=== PATIENT | male | born 1945 | race Caucasian/White ===

== ENCOUNTER 2018-08-14 05:50 | Inpatient (IN) | payer MEDICARE, OTHER ==
[2018-08-11 09:46] LABS: BASOPHILS % 0.8 % (0.0-1.0); EOSINOPHILS # (AUTO) 0.1 (0.0-0.4); EOSINOPHILS % 1.8 % (0.0-6.0); HEMATOCRIT 38.9 % (38.2-49.6); HEMOGLOBIN 13.3 g/dL (14.0-18.0); LYMPHOCYTES # (AUTO) 0.8 (1.0-3.2); MEAN CORPUSCULAR HEMOGLOBIN 32.1 pg (28-32); MEAN CORPUSCULAR HGB CONC 34.2 g/dL (31-35); MONOCYTES # (AUTO) 0.4 (0.2-0.8); MONOCYTES % 10.8 % (4.4-11.3); NEUTROPHILS # (AUTO) 2.5 (2.1-6.9); NEUTROPHILS % 64.3 % (38.7-80.0); PLATELET COUNT 180 x10e3/uL (140-360); RED BLOOD COUNT 4.14 x10e6/uL (4.3-5.7); RED CELL DISTRIBUTION WIDTH 12.6 % (11.7-14.4)
--- NOTE | 2018-08-11 10:11 | Diagnostic Imaging Report ---
EXAMINATION: PA and lateral views of the chest. COMPARISON: None CLINICAL HISTORY: Preoperative evaluation DISCUSSION: Lines/tubes: None. Lungs: Left lingular atelectasis, otherwise the lungs are clear.. No pneumonia or pulmonary edema. Pleura: No pleural effusion or pneumothorax. Heart and mediastinum: The cardiomediastinal silhouette is normal. Bones and soft tissues: No acute bony abnormalities. IMPRESSION: No acute cardiopulmonary abnormalities. Signed by: Dr. Richard Noguera M.D. on 08/11/2018 10:07 AM
[~2018-08-14] VITALS: Ht 182.9 cm; Wt 99.9 kg
[~2018-08-14 05:50] MED LIST: METOPROLOL SUCC50 MG PO; TERAZOSIN HCL5 MG PO
--- OUTSIDE RECORDS SUMMARY | 2018-08-14 05:59 | XMS REPORT ---
Author Author [facility] Address Unknown Phone Unavailable Care Team Providers [facility] [employer] Name Role Phone SHAHLA SERRATO Unavailable Unavailable Problems This patient has no known problems. Allergies, Adverse Reactions, Alerts This patient has no known allergies or adverse reactions. Medications This patient has no known medications. Results Test Description Test Time Test Comments Text Results Atomic Results Result Comments CHEST 2 VIEWS 2018-08-11 10:07:00 [place] [id number] [place] [address] Patient Name: LULA TARIQ MR #: [id number] : 1945 Age/Sex: 73/M Req #: [id number] [facility] Physician: Ordered by: SHAHLA SERRATO MD Report #: [id number] Location: OR Room/Bed: Procedure: [id number] DX/CHEST 2 VIEWS Exam Date: 08/11/18 Exam Time: 924 REPORT STATUS: Signed EXAMINATION: PA and lateral views of the chest. COLEEN RISON: None CLINICAL HISTORY: Preoperative evaluation DISCUSSION: Lines/tubes: None. Lungs: Left lingular atelectasis, otherwise the lungs are clear.. No pneumonia or pulmonary edema. Pleura: No pleural effusion or pneumothorax. Heart and mediastinum: The cardiomediastinal silhouette is normal. Bones and soft tissues: No acute bony abnormalities. IMPRESSION: No acute cardiopulmonary abnormalities. Signed by: Dr. Max Lopes M.D. on 08/11/2018 10:07 AM Dictated By: MAX LOPES MD [id number] Transcribed By: KISHAN on 08/11/18 1007 COPY TO: SHAHLA SERRATO MD
[2018-08-14] MEDS ORDERED: CELECOXIB 200 MG CAP ONE (06:27)
[2018-08-14] MEDS ORDERED: DEXAMETHASONE SOD PHOS 10 MG/1 ML VIAL ONE (06:28)
[2018-08-14] MEDS ORDERED: GABAPENTIN 300 MG CAP ONE (06:28)
[2018-08-14] MEDS ORDERED: CEFAZOLIN SOD 2 GM/D5W 50ML 50 ML IV ONE (06:28)
[2018-08-14 06:48] LABS: BASOPHILS % 0.7 % (0.0-1.0); EOSINOPHILS # (AUTO) 0.2 (0.0-0.4); EOSINOPHILS % 3.3 % (0.0-6.0); HEMATOCRIT 38.9 % (38.2-49.6); HEMOGLOBIN 13.4 g/dL (14.0-18.0); LYMPHOCYTES # (AUTO) 1.3 (1.0-3.2); LYMPHOCYTES % 27.9 % (18.0-39.1); MEAN CORPUSCULAR HEMOGLOBIN 32.6 pg (28-32); MEAN CORPUSCULAR HGB CONC 34.4 g/dL (31-35); MEAN CORPUSCULAR VOLUME 94.6 fL (81-99); MONOCYTES # (AUTO) 0.5 (0.2-0.8); NEUTROPHILS # (AUTO) 2.6 (2.1-6.9); NEUTROPHILS % 57.9 % (38.7-80.0); PLATELET COUNT 179 x10e3/uL (140-360); RED BLOOD COUNT 4.11 x10e6/uL (4.3-5.7); RED CELL DISTRIBUTION WIDTH 12.8 % (11.7-14.4)
--- NOTE | 2018-08-14 07:10 | NUR ---
SPIRITUAL CARE - Pre-Surgery Assessment: Pt in bed. Pt reported supportive attention from family and friends. Intervention: I provided pastoral presence, hospitality, and sympathetic listening. I acquainted pt with availability of english teacher while hospitalized. Outcome: Pt expressed appreciation for visit. No need for follow up indicated at this time. [facility] Spiritual Care Department O: [phone] Pager: [phone] ([phone] number calling from)
[2018-08-14] MEDS ORDERED: BACITRACIN 50,000 UNIT VIAL ONE (07:22)
[2018-08-14] MEDS ORDERED: TRANEXAMIC ACID 1,000 MG/10 ML ML ONE (07:22)
[2018-08-14] MEDS ORDERED: BUPIVACAINE 7.5MG/ML /DEXTROSE 82.5MG/ML 2 ML AMP INJ ONE (07:28)
[2018-08-14] MEDS ORDERED: ROPIVACAINE 246.25 MG, EPINEPHRINE HCL 1:1000 1ML 0.5 MG, CLONIDINE HCL 0.08 MG, KETORO... INJ ONE ×5 (07:30)
[2018-08-14] MEDS ORDERED: VANCOMYCIN HCL 500 MG ONE (07:46)
[2018-08-14] MEDS ORDERED: SODIUM CHLORIDE 0.9% 500ML 500 ML ONE (07:46)
[2018-08-14] MEDS ORDERED: HYDROCODONE/APAP 5MG-325MG TAB PO PRN (10:00)
[2018-08-14] MEDS ORDERED: ACETAMINOPHEN 650 MG SUPP PR PRN (10:00)
[2018-08-14] MEDS ORDERED: ONDANSETRON HCL INJ 2MG/ML 2ML 2 MG/ML VIAL IV PRN (10:00)
[2018-08-14] MEDS ORDERED: HYDROCODONE/APAP 7.5MG-325MG 1 EA TAB PO PRN (10:00)
[2018-08-14] MEDS ORDERED: DIPHENHYDRAMINE HCL INJ 50 MG/ML VIAL IM/IV PRN (10:00)
[2018-08-14] MEDS ORDERED: PROMETHAZINE HCL (IM) 25 MG/ML VIAL INJ PRN (10:00)
[2018-08-14] MEDS ORDERED: DOCUSATE SODIUM 100 MG CAP PO PRN (10:00)
[2018-08-14] MEDS ORDERED: ZOLPIDEM TARTRATE 5 MG TAB PO PRN (10:00)
[2018-08-14] MEDS ORDERED: FENTANYL CITRATE/PF 100MCG/2 ML INJ ONE ×2 (10:27→18:36)
[2018-08-14] MEDS ORDERED: HYDROMORPHONE 2MG/ML 2 MG/ML ML ONE (11:57)
[2018-08-14] MEDS: ACETAMINOPHEN 1000 MG/100 ML IV SCH ×2 (12:00→18:02)
--- NOTE | 2018-08-14 12:24 | Diagnostic Imaging Report ---
Exam: Left hip series portable 2 views dated 08/14/2014 at 11:13 AM History: Hip replacement Comparison: None available Findings: There is a total hip replacement in good position. Single screw through the acetabular cup is present into the iliac bone. Surgical skin erica with air within the soft tissues. Impression: Status post total hip replacement. Signed by: Dr. Justin Bledsoe DO on 08/14/2018 12:21 PM
[2018-08-14] MEDS ORDERED: MORPHINE SULFATE INJ 4 MG/ML INJ 1ML ONE (16:46)
[2018-08-14] MEDS: SODIUM CHLORIDE 0.9% 1000ML 1,000 ML IV SCH ×2 (18:01→19:46)
[2018-08-14] MEDS: CELECOXIB 100 MG CAP PO SCH (18:02)
[2018-08-14] MEDS: ASPIRIN 325 MG TAB PO SCH (18:02)
[2018-08-14 18:05] VITALS: BP 133/83
[2018-08-14 18:07] VITALS: BP 133/83
--- NOTE | 2018-08-14 18:10 | Operative Report ---
DATE OF PROCEDURE: 08/14/2018 SURGEON: Rene Myers MD COOK MESS: Rod Llamas PA-C PREOPERATIVE DIAGNOSIS: Osteoarthritis, left hip. POSTOPERATIVE DIAGNOSIS: Osteoarthritis, left hip. PROCEDURE: Left total hip arthroplasty. INDICATIONS: The patient is an active 73-year-old gentleman, who has end-stage arthritis over the left hip. He has failed conservative management and would like to proceed with a left total hip replacement. The risks and benefits of the left total hip replacement have been discussed at length. All of his questions have been answered. The hospital stay, implants, and recovery were explained. He states he understands and wishes to proceed. DESCRIPTION OF PROCEDURE: The patient was brought to the operating room and given a spinal anesthetic. He received prophylactic antibiotics and tranexamic acid in the holding area. He was positioned in the right lateral decubitus position. His left hip was prepped and draped in the sterile manner. A preoperative time-out was performed. An incision was initiated to the left hip. He had some persistent sensation and was placed under general anesthetic. We proceeded with the case. Hemostasis was obtained with electrocautery. A deep self-retaining Charnley retractor was placed. The posterior capsule was released. The hip was dislocated and an oscillating saw was used to resect the femoral head. Complete loss of articular cartilage was noted. Acetabular retractors were placed. Labral remnants were excised. The true floor of the acetabulum was established with a 50-mm reamer. The socket was then sequentially reamed up to 57 mm. Hemispherical bleeding cancellous bone was accomplished. A small shallow subcondylar cyst was debrided with a curved curette. A Dayanna [employer] 58 mm outer diameter Oseoti socket was then impacted into place. Excellent fixation was obtained. Fixation was augmented with a single 20 mm screw placed into the ilium. An anterior osteophyte was excised with a curved osteotome and rongeurs. A highly crosslinked polyethylene liner with a 36-mm inner diameter was then seated. Care was taken to make sure that there was no evidence of soft tissue interposition throughout this portion of the case. The hip was thoroughly irrigated multiple times with a shower tip pulsatile lavage. A portion of 100 mL premixed pericapsular injection was placed around the acetabular tissue. The socket was packed with a moistly soaked lap sponge and attention was directed towards the proximal femur. A box-cutting osteotome and taper pin reamer were used to establish entry to the femoral canal. Dayanna [employer] Taperloc broaches were then impacted. A size 10 stem had good canal fill and rotational stability for trial reductions. A standard 36 mm hip was trialed. The hip was put though a full arc of motion, and felt to have good stability and anabaptist of limb length. The trial implants were removed. The hip was further irrigated, but no shower tip pulsatile lavage. An additional spray bottle of polymixin and vancomycin was also sprayed into the operative field on a number of occasions. The implants were seated and the final reduction was performed. The hip was again put through a full of arc of motion and noted to have excellent stability. The posterior capsule was well preserved and was repaired with interrupted #2 Ethibond. The gluteal fascia was closed with #2 Ethibond. The skin was closed with subcuticular Vicryl and erica. A sterile Aquacel bandage was applied. Estimated blood loss was 100 mL. At the end of the procedure, all needle and sponge counts were correct. Rene Myers MD DR/PK /[id number] HEATHER
[2018-08-14] MEDS: CEFAZOLIN SOD 1 GM/NS 50ML 50 ML IV SCH (18:35)
[2018-08-14] MEDS ORDERED: MIDAZOLAM HCL 2 MG/2 ML VIAL ONE (18:36)
[2018-08-14] MEDS ORDERED: DEXAMETHASONE SOD PHOS INJ 4 MG/ML VIAL ONE (19:15)
[2018-08-14] MEDS ORDERED: ONDANSETRON HCL INJ 2MG/ML 2ML 2 MG/ML VIAL ONE (19:15)
[2018-08-14] MEDS ORDERED: PHENYLEPHRINE HCL 1% 10 MG/ML VIAL ONE (19:15)
[2018-08-14] MEDS ORDERED: PROPOFOL IV EMULSION 10 MG/ML 20 ML VIAL ONE (19:15)
[2018-08-14] MEDS ORDERED: LIDOCAINE HCL 2% LOCAL INJ 5 ML SDV VIAL INJ ONE (19:15)
[2018-08-14] MEDS ORDERED: DESFLURANE 240 ML BTL INH ONE (19:15)
[2018-08-14 20:00] VITALS: BP 117/67
--- NOTE | 2018-08-14 20:00 | NUR ---
PT IN ROOM, IV INFUSING, ABDUCTOR PILLOW IN PLACE, DRESSING TO LEFT HIP INTACT WITHOUT DRAINAGE, FAMILY AT BEDSIDE, CALL LIGHT IN REACH, VS STABLE, NO DISTRESS NOTED
[2018-08-14] MEDS ORDERED: CEPACOL SORE THROAT LOZENGES PO PRN (20:15)
[2018-08-15] VITALS: BP 114/66
--- NOTE | 2018-08-15 | NUR ---
VS STABLE, PT AWAKE, NO DISTRESS NOTED, CALL LIGHT IN REACH
[2018-08-15] MEDS: CEFAZOLIN SOD 1 GM/NS 50ML 50 ML IV SCH ×2 (00:30→08:31)
[2018-08-15] MEDS: KETOROLAC TROMETHAMINE 30 MG/ML VIAL IV PRN ×2 (01:11→11:03)
[2018-08-15 04:00] VITALS: BP 108/61
[2018-08-15 05:34] LABS: HEMATOCRIT 32.5 % (38.2-49.6); HEMOGLOBIN 11.1 g/dL (14.0-18.0)
[2018-08-15] MEDS: SODIUM CHLORIDE 0.9% 1000ML 1,000 ML IV SCH (05:46)
[2018-08-15] MEDS: ACETAMINOPHEN 1000 MG/100 ML IV SCH ×2 (06:00)
--- NOTE | 2018-08-15 06:45 | NUR ---
PT IN BED, URINAL USED SEVERAL TIMES, IV INFUSING, CALL LIGHT IN REACH, NO DISTRESS NOTED, VS STABLE
[2018-08-15 08:00] VITALS: BP 128/67
[2018-08-15] MEDS: ASPIRIN 325 MG TAB PO SCH (08:31)
[2018-08-15] MEDS: CELECOXIB 100 MG CAP PO SCH (08:31)
[2018-08-15 09:55] VITALS: BP 128/67
--- NOTE | 2018-08-15 09:55 | NUR ---
CASE MANAGEMENT ASSESSMENT Ekg/Ecg Technician to bedside to discuss plan of care with patient/family. CM/SW role and care transitions discussed. Anticipated discharge plan discussed along with duration of care. CM/SW discussed patients right to make decisions in care. CM/SW work hours given. Patient lives: alone Admit/Transfer: from PACU Hospital/ER visits since last admit: has been in [facility] for 55 years; this is 1st hospitalization POA/Emergency contact: carolyn Colon [phone] Current/Previous Home Health: none previously. Home health arranged by Dr. Myers's office with [facility]. Choice letter signed and placed in chart. Copy to pt. CM called and spoke to Guerda and informed her we are anticipating discharge today. She stated they will be able to see pt tomorrow. They have already been in contact with pt. PCP/Follow-up Care: Dr. Winslow - PCP; pt will follow up with Dr. Myers as instructed. Current/Previous DME: states he has 2 walkers, a cane, crutches, and bedside commode at home already. Stated he does not need another walker or commode that was ordered by Dr. Myers's office. CM asked him to have his friend bring his walker to the hospital for discharge. He stated walker is already in the car. Medications (referring to index hospitalization or the first time you were in the hospital) a. Were changes made in your medications when you were in the hospital on [date of index hospitalization]? n/a b. Did you understand the changes? n/a c. Were you able to obtain your new medications right away? n/a d. Were you able to take your medications like the doctor wanted you to? n/a e. Did the hospital give you an accurate, easy to understand list of medications when you left? n/a Scale of 1-10 how comfortable does patient feel with disease management in outpatient settin Other Services: none Areas of Concerns: Hip surgery Referral Needs: home health Education Needs: post operative instructions IMM/TEJADA given and signed (if applicable): IMM delivered and explained to pt. He verbalized understanding. Signed copy placed in chart. Copy to pt. Goal for discharge: Home with home health CM/SW left business card at the bedside with contact information. Name and number was also written on the patients whiteboard. Patient verbalized understanding of discussion. DION will follow-up with ongoing discharge and transition of care needs.
[2018-08-15] MEDS ORDERED: ACETAMINOPHEN 1000 MG/100 ML IV PRN (10:00)
[2018-08-15] MEDS ORDERED: ASPIRIN325 MG PO (12:22)
--- NOTE | 2018-08-15 12:42 | NUR ---
PT CURRENTLY HAVING LUNCH. PER PHYSICAL THERAPY THEY WOULD LIKE TO WORK WITH HIM AGAIN ON STAIRS BEFORE DISCHARGE, WILL SEE PT AFTER LUNCH.
--- NOTE | 2018-08-15 12:59 | Consultation ---
DATE OF CONSULTATION: REASON FOR CONSULTATION: HISTORY OF PRESENT ILLNESS: The patient is a 73-year-old gentleman, who is status post left hip arthroplasty for end-stage osteoarthritis some left hip pain, which has been well controlled. He denies any fevers, chills, nausea, vomiting, headaches, shortness of breath, dizziness. PAST MEDICAL HISTORY: Hypertension and BPH. MEDICATIONS: Lopressor and terazosin. ALLERGIES: NONE. SOCIAL HISTORY: Nonsmoker, nondrinker. lives at home. PHYSICAL EXAMINATION: VITAL SIGNS: pulse 66, blood pressure 114/66, sats are 97% on room air. GENERAL: In no apparent distress. NECK: Supple. CARDIOVASCULAR: Regular rate and rhythm. LUNGS: Clear to auscultation bilaterally. ABDOMEN: soft and nontender. EXTREMITIES: No clubbing or cyanosis. NEUROLOGIC: Nonfocal. ASSESSMENT AND PLAN: 1. Left hip . 2. Anemia. Continue . MD BRINDA Dugan/PK /[id number]
[2018-08-15 13:20] VITALS: BP 117/67
== END 2018-08-15 13:55 | disposition home health service (06) | DRG 470 ==
LOC: OR 05:50 → PACU V 09:47 → MED/SURG 17:00
PROVIDERS: ADMIT Specialist; ATTEND Specialist
PROC: 0SRB0JZ Replacement of Left Hip Joint with Synthetic Substitute, Open Approach (ICD-10-PCS; principal; 2018-08-14 08:29)
DX: M16.12 Unilateral primary osteoarthritis, left hip (principal); I10 Essential (primary) hypertension; N40.0 Benign prostatic hyperplasia without lower urinary tract symptoms; D64.9 Anemia, unspecified
CPT/HCPCS: 36415; 71046; 72170; 85014; 85018; 85025; 86850; 86900; 86920; 93005; 97139; C1713; J0171; J0690; J1100; J1885; J2001; J2250; J2270; J2370; J2405; J2795; J3370; J7030; J7040